=== PATIENT | female | born 1950 | race Asian ===

== ENCOUNTER 2016-12-14 10:34 | Emergency (ER) | payer OTHER ==
[2016-12-14 11:13] LABS: PLATELET COUNT 311 x10^3mcL (130-400); RED CELL DISTRIBUTION WIDTH 11.9 % (11.5-14.5)
[2016-12-14 11:20] LABS: CALCIUM 9.2 mg/dL (8.5-10.1); CARBON DIOXIDE 25.6 mmol/L (21-32); CHLORIDE SERUM 101 mmol/L (98-107); CREATININE SERUM 0.8 mg/dL (0.6-1.0); GFR1 > 60 mL/min; GLUCOSE SERUM 144 mg/dL (74-106); POTASSIUM SERUM 3.3 mmol/L (3.5-5.1); SODIUM SERUM 139 mmol/L (136-145)
[2016-12-14 11:25] LABS: ALBUMIN 4.1 g/dL (3.4-5.0); ALKALINE PHOSPHATASE 56 U/L (46-116); ALT/SGPT 25 U/L (14-59); AST/SGOT 26 U/L (15-37); BILIRUBIN TOTAL 0.58 mg/dL (0.20-1.00); LIPASE 128 IU/L (73-393)
[2016-12-14 11:27] LABS: TOTAL PROTEIN, SERUM 8.6 g/dL (6.4-8.2)
[2016-12-14 11:48] LABS: BAND NEUTROPHIL 5 % (0-10); BASOPHIL 0 % (0-2); MONOCYTE 5 % (0-7); SEGMENTED NEUTROPHILS 81 % (37-75)
[2016-12-14 11:49] LABS: PLATELET MORPHOLOGY PLATELETS NORMAL
[2016-12-14 13:00] VITALS: BP 120/84
== END 2016-12-14 13:00 | disposition home or self-care (01) ==
LOC: ED 10:34
PROVIDERS: Emergency Medicine
DX: K80.70 Calculus of gallbladder and bile duct without cholecystitis without obstruction (principal); E87.6 Hypokalemia; Z88.1 Allergy status to other antibiotic agents
CPT/HCPCS: J2405; J3010; J7030; Q0092